=== PATIENT | female | born 1945 | race Caucasian/White ===

== ENCOUNTER 2017-10-30 19:33 | Emergency (ER) | payer MEDICARE, OTHER ==
[~2017-10-30] VITALS: Ht 167.6 cm; Wt 81.7 kg
[2017-10-30 20:15] VITALS: BP 143/78
--- NOTE | 2017-10-31 17:26 | EKG ---
[place] [address] ELECTROCARDIOGRAM REPORT Name: BRIANNA MORTON Room: [facility]#: [id number] Admission: 10/30/17 Attend Phys: Discharge: 10/30/17 Date of : 47 Report #: [id number] THIS REPORT FOR: //name// [facility] ED Test Date: 2017-10-30 Test Time: 19:53:49 Pat Name: BRIANNA MORTON Department: Room: Gender: F Manager Agency: JULIANE : 1945 Requested By: Jim Hansen Order Number: [id number] MD: Samson Lindsay Measurements Intervals Jackson Rate: 53 P: 49 DC: 141 QRS: 28 QRSD: 90 T: 66 QT: 469 QTc: 441 Interpretive Statements Sinus bradycardia Left atrial enlargement possible Consider left ventricular hypertrophy No previous ECG available for comparison Electronically Signed On 10-31-2017 17:26:04 CDT by Samson Lindsay [email or web address] <ELECTRONICALLY SIGNED> By: Samson Lindsay MD, [facility] 10/31/17 1726 195 52 Samson Lindsay MD, FACC /EPI
== END 2017-10-30 20:20 | disposition home or self-care (01) ==
LOC: M.ERS 19:33
DX: Z71.1 Person with feared health complaint in whom no diagnosis is made (principal); I10 Essential (primary) hypertension; F17.210 Nicotine dependence, cigarettes, uncomplicated; Z90.710 Acquired absence of both cervix and uterus; Z90.49 Acquired absence of other specified parts of digestive tract

== ENCOUNTER → 2017-10-30 | Outpatient (CLI) | payer MEDICARE, OTHER ==
[~2017-10-30] MED LIST: ASPIR 8181 MG PO; CRESTOR10 MG PO; NEURONTIN 300300 M1 PO; PANTOPRAZOLE SO40 M1 PO; PROZAC20 MG PO; TENORMIN50 MG PO
[2017-10-30 09:46] LABS: CREATININE 1.2 mg/dL (0.6-1.3)
--- NOTE | 2017-11-02 12:02 | EEG ---
[address] [address] EEG STUDY REPORT Name: BRIANNA MORTON Room: [facility]#: [id number] Admission: 10/30/17 Attend Phys: Avila Nunez MD Discharge: Date of : 47 Report #: [id number] THIS REPORT FOR: //name// CC: Quynh Nunez DATE OF SERVICE: 10/30/2017 This patient is being evaluated for dizziness. EEG was done by placing the electrode by standard 10-20 system of electrode placement. Both referential and sequential montages were used for recording. Background activity in this patient's EEG is about 9 Hz and 30 microvolt. It is a symmetrical activity. The patient became drowsy that is associated with bilateral slowing and vertex sharp waves. Throughout the record, no active epileptiform activity was noticed. IMPRESSION: This patient's EEG, which looks unremarkable. EKG channel has lot of artifact and is difficult to interpret. However, it does appear that the heart is irregular. Because of that, I called the patient and left a message for her to call me back as soon as possible. This may be the cause of dizziness and I would like her to get evaluated by going to Emergency Room and getting an EKG done and maybe get admitted for monitoring the heart, looking for any cardiac arrhythmia. Thank you very much for this referral. <ELECTRONICALLY SIGNED> By: Avila Nunez MD 11/02/17 1202 [id number] [id number] verito Sims
== END ==
LOC: M.MRI 09:10
PROVIDERS: Psychiatry & Neurology Neuromuscular Medicine
DX: G31.9 Degenerative disease of nervous system, unspecified (principal); R26.9 Unspecified abnormalities of gait and mobility; W19.XXXA Unspecified fall, initial encounter

== ENCOUNTER → 2019-01-30 | Outpatient (CLI) | payer MEDICARE, OTHER ==
[2019-02-01 10:07] LABS: ANA INTERPRETATION Positive (Negative); ANTI-SSA <0.2 AI (0.0-0.9); ANTIJO-I AB <0.2 AI (0.0-0.9)
--- NOTE | 2019-02-01 12:46 | EEG ---
[address] [address] EEG STUDY REPORT Name: BRIANNA MORTON Room: [facility]#: [id number] Admission: 01/30/19 Attend Phys: Avila Simpson MD Discharge: Date of : 47 Report #: [id number] THIS REPORT FOR: //name// CC: Quynh Simpson DATE OF SERVICE: 01/30/2019 This patient is having an episode where she becomes neurologically impaired. No cause has been found for that. EEG was done to evaluate the possibility of non-convulsive seizure. EEG was done by placing the electrode by standard 10-20 system of electrode placement. Both referential and sequential montages were used for recording. The background activity in this patient's EEG is about 9 Hz and 30 microvolts. The patient became drowsy that is associated with bilateral slowing. Photic stimulation was unremarkable. Throughout the record, no active epileptiform activity was noticed. IMPRESSION: This patient's EEG is unremarkable. <ELECTRONICALLY SIGNED> By: Avila Simpson MD 02/01/19 1246 1604 [id number] Simpson MD /nt
== END ==
LOC: M.MRI 01-21 08:33 → M.LAB 14:14 → M.MRI 16:30
PROVIDERS: Psychiatry & Neurology Neuromuscular Medicine
DX: I63.9 Cerebral infarction, unspecified (principal); R26.9 Unspecified abnormalities of gait and mobility; R93.89 Abnormal findings on diagnostic imaging of other specified body structures

== ENCOUNTER → 2019-02-11 | Outpatient (CLI) | payer MEDICARE, OTHER | LOC: M.ULTRA 11:05 | DX: I65.23 Occlusion and stenosis of bilateral carotid arteries (principal) ==